=== PATIENT | male | born 1940 | race Caucasian/White ===

== ENCOUNTER 2017-03-23 16:41 | Inpatient (IN) | payer MEDICARE, MEDICAID ==
[~2017-03-23] VITALS: Ht 157.5 cm; Wt 46.3 kg
[~2017-03-23 16:41] MED LIST: ASPI-605 PO; CHOL500050 PO; CYAN10009 PO; GLYB1TAB2 PO; HYDR-3326 PO; NITR0.4T48 SL; PANT40TA4 PO; SENN-167 PO; SERT50TA PO; SUCR1TAB PO; TAMS0.4C34 PO
[2017-03-23] MEDS ORDERED: LOPE2CAP PO (17:06)
[2017-03-23] MEDS ORDERED: OMEP40CA37 PO (17:06)
[2017-03-23] MEDS ORDERED: AMPICILLIN IV 2 G in IV NORMAL SALINE 100 ML IV ONE (17:30)
[2017-03-23 17:51] LABS: *BILIRUBIN,URIN NEGATIVE (NEGATIVE); *BLOOD, URINE 1+ (NEGATIVE); *CLARITY,URINE CLEAR (CLEAR); *COLOR,URINE LIGHT YELLOW (YELLOW); *KETONES,URINE NEGATIVE (NEGATIVE); *PROTEIN,URINE NEGATIVE (NEGATIVE); *UROBILINOGEN,URINE 0.2 E.U./dl (NORMAL); LEUKOCYTE ESTERASE ,URINE TRACE (NEGATIVE); NITRITE, URINE NEGATIVE (NEGATIVE); PH,URINE 5.5 (5.0-8.0); UGLUCOSE NEGATIVE (NEGATIVE)
[2017-03-23 17:54] LABS: BASOPHILS % (AUTO) 0.4 % (0.0-2.0); EOSINOPHILS % (AUTO) 0.6 % (0.0-7.0); HEMATOCRIT 40.9 % (40-50); HEMOGLOBIN 13.6 G/DL (14.0-18.0); LYMPHOCYTES # (AUTO) 1.3 K/UL (0.8-4.8); LYMPHOCYTES % (AUTO) 20.3 % (20.5-51.5); MEAN CORPUSCULAR HEMOGLOBIN 29.8 UUG (27.0-31.0); MEAN CORPUSCULAR HGB CONC 33 g/dL (32.0-37.0); MEAN CORPUSCULAR VOLUME 89.7 FL (82.0-92.0); MONOCYTES # (AUTO) 0.6 K/UL (0.1-1.30); MONOCYTES % (AUTO) 9.7 % (0.0-11.0); NEUTROPHILS # (AUTO) 4.5 K/UL (1.8-8.9); PLATELET COUNT (AUTO) 125 K/UL (150-450); RED BLOOD CELL COUNT(AUTO) 4.56 MIL/UL (4.7-6.1); WHITE BLOOD COUNT (AUTO) 6.4 K/UL (4.0-11.2)
[2017-03-23 18:02] LABS: CARBON DIOXIDE 30 mmol/L (21-32); CHLORIDE 103 mmol/L (98-107); CREATININE 1.7 mg/dL (0.6-1.3); GLUCOSE 149 mg/dL (74-106); POTASSIUM 3.6 mmol/L (3.5-5.1); UREA NITROGEN, BLOOD 15 mg/dL (7-18)
[2017-03-23 18:07] LABS: BACTERIA,URINE FEW /HPF (NONE SEEN); RBC,URINE 0-3 /HPF (0-3); SQUAMOUS EPITHELIAL CELL,UR FEW /HPF (NONE SEEN); WBC,URINE 0-3 /HPF (0-3)
[2017-03-23 18:08] LABS: ALANINE AMINOTRANSFERASE 14 U/L (16-63); ALKALINE PHOSPHATASE 59 U/L (50-136); ASPARTATE AMINOTRANSFERASE 19 U/L (15-37); BILIRUBIN,TOTAL 0.4 mg/dL (0.2-1.0); TOTAL PROTEIN, SERUM 7.5 g/dL (6.4-8.2)
[2017-03-23] MEDS ORDERED: ONDANSETRON 4 MG/2 ML VIAL IV ONE (20:15)
[2017-03-23] MEDS ORDERED: MORPHINE SULFATE 2 MG/1 ML DISP.SYRIN IV ONE (20:15)
[2017-03-23] MEDS ORDERED: VANCOMYCIN IV 1,000 MG in IV DEXTROSE 5% 250 ML IV ONE (20:15)
[2017-03-23] MEDS ORDERED: PIPERACILLIN SODIUM/TAZOBACTAM 3.375 G in IV DEXTROSE 5% 50 ML IV ONE (20:15)
[2017-03-23] MEDS ORDERED: ONDANSETRON 4 MG/2 ML VIAL ONE (20:29)
[2017-03-23] MEDS ORDERED: PIPERACILLIN/TAZOBACTAM/D5W 50 ML IV ONE (20:29)
[2017-03-23] MEDS ORDERED: MORPHINE SULFATE 4 MG/1 ML DISP.SYRIN ONE (20:29)
[2017-03-23] MEDS ORDERED: VANCOMYCIN IV 200 ML ONE (20:50)
[2017-03-23] MEDS ORDERED: HYDROCODONE/APAP 10-325 MG TABLET PO PRN (21:30)
[2017-03-23] MEDS ORDERED: ACETAMINOPHEN 325 MG TABLET PO PRN (21:30)
[2017-03-23] MEDS ORDERED: DEXTROSE 50% 50 ML DISP.SYRIN IV PRN (21:30)
[2017-03-23] MEDS ORDERED: MORPHINE SULFATE 2 MG/1 ML DISP.SYRIN IV PRN (21:30)
[2017-03-23] MEDS ORDERED: Z GUARD REMEDY PASTE 57 GM TUBE TOP PRN (21:30)
[2017-03-23] MEDS ORDERED: MAGNESIUM HYDROXIDE 30 ML LIQUID UDC PO PRN (21:30)
[2017-03-23] MEDS ORDERED: VANCOMYCIN IV 1 G in PREMIXED 0 EACH IV SCH (21:30)
[2017-03-23] MEDS ORDERED: ENOXAPARIN SODIUM 40 MG/0.4 ML DISP.SYRIN SQ SCH (21:30)
[2017-03-23] MEDS: PIPERACILLIN SODIUM/TAZOBACTAM 4.5 G in IV DEXTROSE 5% 50 ML IV SCH (22:00)
[2017-03-23 22:05] VITALS: BP 137/55
[2017-03-23] MEDS: IV 1/2NS 1000 ML 1,000 ML IV PRN (23:31)
[2017-03-23] MEDS ORDERED: ENOXAPARIN SODIUM 40 MG/0.4 ML DISP.SYRIN SQ ONE (23:32)
[2017-03-24 00:11] VITALS: BP 121/59
[2017-03-24 04:00] VITALS: BP 130/64
[2017-03-24] MEDS: HYDROCODONE/APAP 5-325MG TABLET PO PRN ×2 (05:44→10:02)
[2017-03-24] MEDS ORDERED: HYDROCODONE/APAP 5-325MG TABLET ONE (05:51)
[2017-03-24] MEDS ORDERED: PIPERACILLIN/TAZO 4.5 GM VIAL IV ONE (06:05)
[2017-03-24] MEDS: PIPERACILLIN SODIUM/TAZOBACTAM 4.5 G in IV DEXTROSE 5% 50 ML IV SCH ×2 (06:19→14:03)
[2017-03-24] MEDS: BLOOD SUGAR DIAGNOSTIC 1 EACH STRIP VI SCH ×4 (07:01→21:09)
[2017-03-24 07:04] LABS: BASOPHILS % (AUTO) 0.5 % (0.0-2.0); EOSINOPHILS # (AUTO) 0.1 K/uL (0.0-0.7); EOSINOPHILS % (AUTO) 1.6 % (0.0-7.0); HEMATOCRIT 37.5 % (40-50); HEMOGLOBIN 12.4 G/DL (14.0-18.0); LYMPHOCYTES # (AUTO) 1.5 K/UL (0.8-4.8); LYMPHOCYTES % (AUTO) 26.7 % (20.5-51.5); MEAN CORPUSCULAR HEMOGLOBIN 29.5 UUG (27.0-31.0); MEAN CORPUSCULAR HGB CONC 33 g/dL (32.0-37.0); MEAN CORPUSCULAR VOLUME 89.2 FL (82.0-92.0); MONOCYTES # (AUTO) 0.5 K/UL (0.1-1.30); MONOCYTES % (AUTO) 9.4 % (0.0-11.0); NEUTROPHILS # (AUTO) 3.4 K/UL (1.8-8.9); NEUTROPHILS % (AUTO) 61.8 % (38.5-71.5); PLATELET COUNT (AUTO) 120 K/UL (150-450); WHITE BLOOD COUNT (AUTO) 5.5 K/UL (4.0-11.2)
[2017-03-24 07:28] LABS: THYROID STIMULATING HORMONE 3.758 mIU/mL (0.358-3.740)
[2017-03-24 07:36] LABS: CARBON DIOXIDE 30 mmol/L (21-32); CHLORIDE 104 mmol/L (98-107); CHOLESTEROL 124 mg/dL (<200); CREATININE 1.1 mg/dL (0.6-1.3); GLUCOSE 98 mg/dL (74-106); HDL CHOLESTEROL 75 mg/dL (40-60); MAGNESIUM 1.5 mg/dL (1.8-2.4); PHOSPHOROUS 2.8 mg/dL (2.5-4.9); POTASSIUM 3.5 mmol/L (3.5-5.1); TRIGLYCERIDES 56 MG/DL (30-150); UREA NITROGEN, BLOOD 13 mg/dL (7-18)
[2017-03-24] MEDS: SENNOSIDES 1 TABLET PO SCH (08:22)
[2017-03-24] MEDS: TAMSULOSIN HCL 0.4 MG CAP.SR.24H PO SCH (08:22)
[2017-03-24] MEDS: ASPIRIN EC 81 MG TABLET.DR PO SCH (08:22)
[2017-03-24] MEDS: PANTOPRAZOLE SODIUM 40 MG TABLET.DR PO SCH (08:22)
[2017-03-24] MEDS: METFORMIN HCL 500 MG TABLET PO SCH ×2 (08:23→17:18)
[2017-03-24 11:55] VITALS: BP 120/56
[2017-03-24] MEDS: INSULIN REGULAR, HUMAN 300 UNIT/3 ML VIAL SQ PRN ×2 (12:30→21:12)
[2017-03-24] MEDS: MAGNESIUM SULFATE/D5W 100 ML IV SCH ×2 (13:08→14:03)
[2017-03-24] MEDS: ONDANSETRON 4 MG/2 ML VIAL IV PRN ×2 (14:38→21:02)
[2017-03-24 15:32] VITALS: BP 149/64
[2017-03-24] MEDS: IV 1/2NS 1000 ML 1,000 ML IV PRN (17:22)
[2017-03-24 20:22] VITALS: BP 124/60
[2017-03-24] MEDS: PIPERACILLIN/TAZOBACTAM/D5W 2.25 G in PREMIXED 1 EACH IV SCH (20:59)
[2017-03-24 22:00] VITALS: BP 124/60
[2017-03-25] MEDS: VANCOMYCIN IV 750 MG in IV DEXTROSE 5% 250 ML IV SCH ×2 (01:15→01:17)
[2017-03-25] MEDS: PIPERACILLIN/TAZOBACTAM/D5W 2.25 G in PREMIXED 1 EACH IV SCH ×4 (01:17→20:47)
[2017-03-25] MEDS: ONDANSETRON 4 MG/2 ML VIAL IV PRN ×2 (05:03→13:17)
[2017-03-25] MEDS: PANTOPRAZOLE SODIUM 40 MG TABLET.DR PO SCH (06:09)
[2017-03-25] MEDS: BLOOD SUGAR DIAGNOSTIC 1 EACH STRIP VI SCH ×4 (06:10→20:41)
[2017-03-25 06:50] VITALS: BP 140/60
[2017-03-25] MEDS: METFORMIN HCL 500 MG TABLET PO SCH ×2 (08:00→17:18)
[2017-03-25 11:33] VITALS: BP 108/50
[2017-03-25 11:48] LABS: BASOPHILS % (AUTO) 0.4 % (0.0-2.0); HEMATOCRIT 39.8 % (40-50); HEMOGLOBIN 12.7 G/DL (14.0-18.0); LYMPHOCYTES # (AUTO) 1.1 K/UL (0.8-4.8); LYMPHOCYTES % (AUTO) 22.6 % (20.5-51.5); MEAN CORPUSCULAR HEMOGLOBIN 28.4 UUG (27.0-31.0); MEAN CORPUSCULAR HGB CONC 32 g/dL (32.0-37.0); MEAN CORPUSCULAR VOLUME 88.8 FL (82.0-92.0); MONOCYTES # (AUTO) 0.4 K/UL (0.1-1.30); MONOCYTES % (AUTO) 9.1 % (0.0-11.0); NEUTROPHILS # (AUTO) 3.3 K/UL (1.8-8.9); NEUTROPHILS % (AUTO) 66.9 % (38.5-71.5); PLATELET COUNT (AUTO) 130 K/UL (150-450); RED BLOOD CELL COUNT(AUTO) 4.49 MIL/UL (4.7-6.1); WHITE BLOOD COUNT (AUTO) 4.8 K/UL (4.0-11.2)
[2017-03-25 12:00] LABS: CARBON DIOXIDE 29 mmol/L (21-32); CHLORIDE 102 mmol/L (98-107); CREATININE 1.1 mg/dL (0.6-1.3); GLUCOSE 90 mg/dL (74-106); POTASSIUM 3.7 mmol/L (3.5-5.1); UREA NITROGEN, BLOOD 12 mg/dL (7-18)
[2017-03-25 12:12] LABS: ALANINE AMINOTRANSFERASE 16 U/L (16-63); ALKALINE PHOSPHATASE 43 U/L (50-136); ASPARTATE AMINOTRANSFERASE 24 U/L (15-37); BILIRUBIN,TOTAL 0.7 mg/dL (0.2-1.0); MAGNESIUM 2.3 mg/dL (1.8-2.4); TOTAL PROTEIN, SERUM 6.8 g/dL (6.4-8.2)
[2017-03-25] MEDS: SENNOSIDES 1 TABLET PO SCH (13:24)
[2017-03-25] MEDS: TAMSULOSIN HCL 0.4 MG CAP.SR.24H PO SCH (13:24)
[2017-03-25] MEDS: ASPIRIN EC 81 MG TABLET.DR PO SCH (13:25)
[2017-03-25] MEDS: MIRALAX 17 GM POWD.PACK PO PRN (13:47)
[2017-03-25] MEDS: IV 1/2NS 1000 ML 1,000 ML IV PRN (13:59)
[2017-03-25 15:44] VITALS: BP 121/52
[2017-03-25] MEDS ORDERED: CLOPIDOGREL 75 MG TABLET PO SCH (15:45)
[2017-03-25] MEDS: INSULIN REGULAR, HUMAN 300 UNIT/3 ML VIAL SQ PRN ×2 (17:13→20:41)
[2017-03-25 19:00] VITALS: BP 125/63
[2017-03-26] MEDS: PIPERACILLIN/TAZOBACTAM/D5W 2.25 G in PREMIXED 1 EACH IV SCH ×4 (01:52→20:00)
[2017-03-26] MEDS: ONDANSETRON 4 MG/2 ML VIAL IV PRN (03:51)
[2017-03-26 04:00] VITALS: BP 136/56
[2017-03-26] MEDS: VANCOMYCIN IV 750 MG in IV DEXTROSE 5% 250 ML IV SCH (05:00)
[2017-03-26] MEDS: IV 1/2NS 1000 ML 1,000 ML IV PRN (06:15)
[2017-03-26] MEDS: PANTOPRAZOLE SODIUM 40 MG TABLET.DR PO SCH (06:25)
[2017-03-26] MEDS: BLOOD SUGAR DIAGNOSTIC 1 EACH STRIP VI SCH ×4 (06:35→22:00)
[2017-03-26 07:31] LABS: BASOPHILS % (AUTO) 0.7 % (0.0-2.0); EOSINOPHILS # (AUTO) 0.1 K/uL (0.0-0.7); EOSINOPHILS % (AUTO) 2.2 % (0.0-7.0); HEMATOCRIT 36.6 % (40-50); HEMOGLOBIN 12.1 G/DL (14.0-18.0); LYMPHOCYTES # (AUTO) 0.9 K/UL (0.8-4.8); LYMPHOCYTES % (AUTO) 27.9 % (20.5-51.5); MEAN CORPUSCULAR HEMOGLOBIN 29.8 UUG (27.0-31.0); MEAN CORPUSCULAR HGB CONC 33 g/dL (32.0-37.0); MEAN CORPUSCULAR VOLUME 90.1 FL (82.0-92.0); MONOCYTES # (AUTO) 0.4 K/UL (0.1-1.30); MONOCYTES % (AUTO) 12.8 % (0.0-11.0); NEUTROPHILS % (AUTO) 56.4 % (38.5-71.5); PLATELET COUNT (AUTO) 122 K/UL (150-450); RED BLOOD CELL COUNT(AUTO) 4.06 MIL/UL (4.7-6.1)
[2017-03-26 07:38] LABS: WHITE BLOOD COUNT (AUTO) 3.4 K/UL (4.0-11.2)
[2017-03-26 08:18] LABS: CARBON DIOXIDE 29 mmol/L (21-32); CHLORIDE 104 mmol/L (98-107); CREATININE 1.1 mg/dL (0.6-1.3); GLUCOSE 108 mg/dL (74-106); PHOSPHOROUS 3.3 mg/dL (2.5-4.9); POTASSIUM 3.7 mmol/L (3.5-5.1); UREA NITROGEN, BLOOD 9 mg/dL (7-18)
[2017-03-26] MEDS: ASPIRIN EC 81 MG TABLET.DR PO SCH (08:28)
[2017-03-26] MEDS: TAMSULOSIN HCL 0.4 MG CAP.SR.24H PO SCH (08:28)
[2017-03-26] MEDS: METFORMIN HCL 500 MG TABLET PO SCH ×2 (08:28→17:08)
[2017-03-26] MEDS: SENNOSIDES 1 TABLET PO SCH (08:30)
[2017-03-26 11:58] VITALS: BP 136/53
[2017-03-26 16:47] VITALS: BP 136/60
[2017-03-26] MEDS: INSULIN REGULAR, HUMAN 300 UNIT/3 ML VIAL SQ PRN (17:25)
[2017-03-26 20:16] VITALS: BP 138/61
[2017-03-26] MEDS: MIRALAX 17 GM POWD.PACK PO PRN (22:31)
[2017-03-27] MEDS: PIPERACILLIN/TAZOBACTAM/D5W 2.25 G in PREMIXED 1 EACH IV SCH ×3 (02:09→13:40)
[2017-03-27 06:35] VITALS: BP 132/61
[2017-03-27] MEDS: PANTOPRAZOLE SODIUM 40 MG TABLET.DR PO SCH (07:00)
[2017-03-27] MEDS: BLOOD SUGAR DIAGNOSTIC 1 EACH STRIP VI SCH ×3 (07:33→16:30)
[2017-03-27] MEDS: VANCOMYCIN IV 750 MG in IV DEXTROSE 5% 250 ML IV SCH (08:39)
[2017-03-27] MEDS: SENNOSIDES 1 TABLET PO SCH (08:39)
[2017-03-27] MEDS: ASPIRIN EC 81 MG TABLET.DR PO SCH (08:40)
[2017-03-27] MEDS: METFORMIN HCL 500 MG TABLET PO SCH (08:40)
[2017-03-27 12:10] VITALS: BP 126/55
[2017-03-27] MEDS: INSULIN REGULAR, HUMAN 300 UNIT/3 ML VIAL SQ PRN (13:01)
[2017-03-27 16:34] VITALS: BP 145/88
[2017-03-27] MEDS ORDERED: SULF1TAB48 PO (16:56)
[2017-03-27] MEDS ORDERED: TAMS-3 PO (16:56)
[2017-03-27] MEDS ORDERED: ACID1TAB4 PO (16:56)
[2017-03-27] MEDS ORDERED: TAMSULOSIN HCL 0.4 MG CAP.SR.24H PO SCH (21:00)
== END 2017-03-27 17:17 | disposition home health service (06) | DRG 602 ==
LOC: ER 16:57 → TELE 21:28 → MED 03-24 13:02
DX: L03.113 Cellulitis of right upper limb (principal); N17.0 Acute kidney failure with tubular necrosis; E87.2 Acidosis; E11.9 Type 2 diabetes mellitus without complications; R62.7 Adult failure to thrive; I25.10 Atherosclerotic heart disease of native coronary artery without angina pectoris; K21.9 Gastro-esophageal reflux disease without esophagitis; Z95.1 Presence of aortocoronary bypass graft; Z79.82 Long term (current) use of aspirin; R00.1 Bradycardia, unspecified; Z90.411 Acquired partial absence of pancreas; Z85.07 Personal history of malignant neoplasm of pancreas; Z79.84 Long term (current) use of oral hypoglycemic drugs; I35.1 Nonrheumatic aortic (valve) insufficiency; I25.2 Old myocardial infarction; D64.9 Anemia, unspecified; I11.9 Hypertensive heart disease without heart failure
CPT/HCPCS: 36415; 70030-TC; 71010; 73120; 83605; 83735; 84100; 84443; 85025; 85651; 86140; 87040; 93005; 93307; A4663; J0290; J1650; J1815; J2270; J2405; J2543; J3370; J3475; J3490; J7030; J7060